=== PATIENT | female | born 1960 | race Caucasian/White ===

== ENCOUNTER 2020-06-03 17:18 | Inpatient (IN) | payer MEDICARE ==
[2020-06-04 01:56] VITALS: BP 116/52
[2020-06-04] MEDS: risperiDONE 1 mg/mL 30 mL Bottle PO SCH ×3 (09:44→17:06)
--- NOTE | 2020-06-04 18:03 | History and Physical ---
History of Present Illness - HPI Chief Complaint: * Delusion/Hallucinations HPI: * Admitted from [facility] * Placed on hold with delusion/hallucinations Vital Signs: Last Vital Signs Temp 97.6 F 06/04/20 14:00 Pulse 85 06/04/20 14:00 Resp 18 06/04/20 14:00 BP 104/50 06/04/20 14:00 Pulse Ox 94 06/04/20 14:00 Past Medical History Cardiovascular: Report: No Pertinent Hx CERTIFIED REGISTERED LOCKSMITH: Report: No Pertinent Hx GI: Report: No Pertinent Hx Psych: Report: Depression Musculoskeletal: Report: No Pertinent Hx Rheumatologic: Report: Fibromyalgia Infectious Disease: Report: No Pertinent Hx Renal/: Report: No Pertinent Hx Endocrine: Report: Hypothyroidism Dermatology: Report: No Pertinent Hx - Past Surgical History Past Surgical History: No pertinent Hx Family Medical History - Family Member Family History Unknown: Yes Ethnicity: Unknown Living Status: Unknown Hx Family Cancer: (Unknown) Hx Family Coronary Artery Disease: (Unknown) Hx Family Congestive Heart Failure: (Unknown) Hx Family Hypertension: (Unknown) Hx Family Stroke: (Unknown) Hx Family Diabetes: (Unknown) Hx Family Seizures: (Unknown) Hx Family Dementia: (Unknown) Hx Family AIDS: (Unknown) Hx Family COPD: (Unknown) Hx Family Hepatitis: (Unknown) Hx Family Psychiatric Problems: (Unknown) Hx Family Tuberculosis: (Unknown) Social History Smoke: No Alcohol: None Drugs: None Lives: With Family - Medications Home Medications: Home Medication Medication Instructions Recorded Type DULoxetine DR [Cymbalta] 06/04/20 History Levothyroxine [Synthroid] 06/04/20 History busPIRone [Buspar] 06/04/20 History - Allergies Allergies/Adverse Reactions: Allergies Allergy/AdvReac Type Severity Reaction Status Date / Time Penicillins [PCN] Allergy Verified 06/04/20 01:43 Review of Systems - Review of Systems Constitutional: Report: No Significant Eyes: Report: No Significant ENT: Report: No Significant Respiratory: Report: No Significant Cardiovascular: Report: No Significant Gastrointestinal: Report: Abdominal Pain Musculoskeletal: Report: No Significant Skin: Report: No Significant Neurological: Report: Confusion Physical Exam - Physical Exam HEENT: Report: Ears Nose Throat within normal limits, Pharnyx within normal limits Neck: Report: Within normal limits Cardiovascular Systems: Report: Regular, Rate and Rhythm, no murmurs noted Respiratory: Report: Clear to Auscultation of lung gottlieb, Breath Sounds are within normal limits Abdomen: Report: Tender to palpation Back: Report: Inspection of back is within normal limits. Extremities: Report: Non-tender to palpation., Patient had full range of motion , No pedal edema was noted on inspection Skin: Report: Color of skin is within normal limits, Warm, Dry, No Rashes noted of the skin Neuro/Psych: Report: A+Ox3, CN II-XII intact, Depressed affect, No motor deficit , No sensory deficit, No new focal deficits - Assessment Assessment: * Psychosis * Fibromyalgia * Hypothyroidism * Depression - Plan Plan: * Admitted to Geropsych Unit * Psychiatry Consult * Obtain labs Cranial Nerve Assessment - CRANIAL NERVES alcohol swab:: Yes Distinguishes movements in peripheral field.:: Yes up, down, sideways:: Yes on forehead, cheeks and chin, chews symmetrically:: Yes FACIAL VII: upper: Frowns Symmetrically:: Yes FACIAL VII: Lower: Smiles Symmetrically:: Yes both ears:: Yes GLOSS-PHARYNGEAL IX: Has gag reflex:: Yes VAGUS X: Can make guttural sounds:: Yes ACCESSORY XI: Shrugs shoulders symmetrically:: Yes tremors or fasciculation's:: Yes - MOTOR spasticity, cogwheel, atrophy, tremor, asterixis, other: Yes - COORDINATION Finger to nose, heel to muñoz, RICHARD, gait, Romberg: Yes - SENSORY signs, Brudzinski, Kernig, neck rigidity:: Yes - REFLEXES Brachioradials Right:: Yes Brachioradials Left:: Yes Biceps Right:: Yes Biceps Left:: Yes Triceps Right:: Yes Triceps Left:: Yes Knee Right:: Yes Knee Left:: Yes Ankle Right:: Yes Ankle Left:: Yes Babinski Right:: No Babinski Left:: No
--- NOTE | 2020-06-04 22:48 | Psychiatric Evaluation ---
DATE OF SERVICE: 06/04/2020 PSYCHIATRIC INITIAL EVALUATION AND MENTAL STATUS EXAM AGE: 59. SEX: Female. PHYSICIAN: Dr. Elder. CHIEF COMPLAINT: Severe depression and suicidal notes. HISTORY OF PRESENT ILLNESS: The patient is a 59-year-old female who was placed on 5150 hold for dangers to self. Apparently, the patient was severely depressed and left a suicidal to her daughter that she wants to kill herself. At the same time, the patient was delusional and psychotic and paranoid and she was placed on a hold. The patient was evaluated in [facility] after the patient wrote the suicidal note to her daughter. Her daughter reported that she found the suicidal note that is written by the patient on 05/28/2020. The patient was placed on a hold and she was monitored closely. Also, she was evaluated by a psychiatrist who said that the patient is suicidal and there is high risk of suicide and also that she is delusional. The patient also has upper quadrant pain. The patient also has a small kidney. The patient said that she is complaining of severe pain everywhere in her body. She also has been delusional at times and talking nonsensical according to staff and during my interview. The patient also seems to be abusing pain medications and asking for more pain medications. She does have a diagnosis of fibromyalgia, but it seems that she has been treated more than what she is supposed to of the pain medications. PAST PSYCHIATRIC HISTORY: It is not clear if the patient had history of psychiatric problems, but the patient minimizes her symptoms and behavior. PAST MEDICAL HISTORY: The patient has fibromyalgia as well as hypothyroidism. SOCIAL HISTORY: The patient said that she lives alone. Her in 05/2014. She has 1 daughter and 2 sons. She denies any alcohol or any street drug abuse. She also denies smoking cigarettes. She denies any legal issues or abuse issues. ALLERGIES: PENICILLIN. MENTAL STATUS EXAMINATION: The patient appears her stated age. Anxious. Sad affect. In a depressed mood. Guarded. Thought processes are mainly goal directed, but occasionally circumstantial and tangential with flight of ideas. The patient denies any hallucinations or delusions but admits to suicidal ideations and denies homicidal ideations. The patient is alert and oriented to time, place, person, and situation. Intact immediate memory and she remembered the events happened prior to her admission. Intact recent memory and she remembered the events happened 2 weeks ago. Intact remote memory and she remembered her date. Poor insight and she does not think that she has any problems. Poor judgment and wanted to kill herself. Poor attention and concentration and she was not able to perform any of steps of serial 7. ASSESSMENT: PRIMARY DIAGNOSIS: Major depression, severe, single episode, with psychotic features. SECONDARY DIAGNOSIS: Opiate dependence, severe. TREATMENT PLAN: Continue to monitor behavior and condition closely. Also, continue adjusting psychotropic medications and work on her ineffective coping. Also, continue to work on her addiction to opiates. ESTIMATED LENGTH OF STAY: 5-7 days. PATIENT'S STRENGTHS AND WEAKNESSES: The patient's strength is not clear at this time, except that she has supportive daughter and she seems to be in relatively ____. Weakness is her ineffective coping and misuse of leisure time by using opiates. AFTER DISCHARGE PLANS: Outpatient treatment and followup will continue as an outpatient. CRITERIA FOR DISCHARGE: The patient will not be psychotic and will stabilize on psychotropic medications and will establish treatment plans. JOB# [id number]
--- NOTE | 2020-06-05 08:14 | Progress Notes ---
DATE: 06/05/2020 SUBJECTIVE: Chart reviewed and the patient interviewed. Also discussed the patient's condition with the staff and reviewed records and labs. The patient is still preoccupied with her physical problem and still asking for more pain medications. The patient also is still severely depressed and tends to isolate herself and interacting minimally with others. Has multiple somatic complaints. The patient also is still anxious and is easily irritable and agitated. On the other hand, the patient is compliant with taking her medications with no side effects of medications, which are Lexapro and Risperdal. ASSESSMENT: The patient is anxious and is still severely depressed and high risk suicide. TREATMENT PLAN: Continue to monitor her behavior and her condition closely. Also, the patient is still high risk of suicide and we will place the patient on 5250 hold for dangers to self. Also, continue to work on her irritability and on her ineffective coping as well as her addiction to pain medications. JOB# [id number]
[2020-06-05] MEDS: risperiDONE 1 mg/mL 30 mL Bottle PO SCH ×2 (08:57→16:29)
[2020-06-05 13:32] LABS: HEMATOCRIT 37.3 % (36-48); HEMOGLOBIN 12.2 g/dL (12.0-16.0); MEAN CORPUSCULAR HEMOGLOBIN 32 pg (27-31); MEAN CORPUSCULAR HGB CONC 33 % (32-36); MEAN CORPUSCULAR VOLUME 97 fL (79.0-98.0); RED BLOOD COUNT 3.83 MIL/uL (4.2-6.2); RED CELL DISTRIBUTION WIDTH 13.5 % (9.0-15.0); WHITE BLOOD COUNT 5.6 K/uL (4.8-10.8)
[2020-06-05 13:33] LABS: % NEUTROPHILS 60.6 % (40-70); BASOPHILS % (AUTO) 1.1 % (0.0-2.0); EOSINOPHILS % (AUTO) 2.4 % (0-4); LYMPHOCYTES # (AUTO) 1.6 K/uL (1.0-5.5); LYMPHOCYTES % (AUTO) 27.7 % (20.5-51.5); MONOCYTES # (AUTO) 0.5 K/uL (0.0-1.0); MONOCYTES % (AUTO) 8.2 % (1.7-9.3); NEUTROPHILS # (AUTO) 3.4 K/uL (1.8-7.7); PLATELET COUNT 391 K/uL (130-430)
[2020-06-05 13:34] LABS: EOSINOPHILS # (AUTO) 0.1 K/uL (0.0-0.4)
[2020-06-05 23:27] LABS: CALCIUM SERUM 9.5 mg/dL (8.4-10.2); CREATININE - SERUM 1.11 mg/dL (0.70-1.30)
[2020-06-05 23:28] LABS: BILIRUBIN,TOTAL 0.3 mg/dL (0.0-1.0); TOTAL PROTEIN,SERUM 6.9 g/dL (6.4-8.3)
[2020-06-06 06:10] LABS: A1C 5.5 % (4.8-5.6)
[2020-06-06] MEDS: risperiDONE 1 mg/mL 30 mL Bottle PO SCH ×2 (09:38→17:29)
[2020-06-06 13:58] LABS: CHOLESTEROL 213 mg/dL (<200); LDL CHOLESTEROL 113 mg/dL (0-129); TRIGLYCERIDES 119 mg/dL (30-150)
[2020-06-06] MEDS ORDERED: Magnesium Hydroxide (MOM) 30 mL UDC PO PRN (16:21)
[2020-06-06] MEDS: Maalox 30 mL Cup PO PRN (18:15)
--- NOTE | 2020-06-06 18:28 | Progress Notes ---
DATE: 06/06/2020 SUBJECTIVE: Chart reviewed and the patient interviewed. Also discussed the patient's condition with the staff and reviewed records and labs. "I have abdominal pain because of my abdominal condition not because I am anorexic or has a problem with my diet." The patient said that she is complaining of abdominal pain and also bleeding per rectum because of medical reasons. The patient is today seems to be more depressed and her insight seems to be slightly better. She is also interacting slightly more. She is still isolative and withdrawn and interacting minimally with others. Also, appetite is still poor. The patient said that because of her abdominal condition, she needs to eat special food and the way she eats the food and from the hospital is not agreeing with her that is why she goes to the bathroom frequently and has abdominal pain. ASSESSMENT: The patient is still depressed and agitated, but seems to have ___. TREATMENT PLAN: Continue monitoring her condition and continue current medications of Lexapro and Risperdal. Also, we will get diet consult to help with her getting the right food and right diet. At the same time, we will continue monitoring behavior and continue to follow up. JOB# [id number]
[2020-06-06] MEDS ORDERED: Potassium Chloride 20 mEq ER Tab PO ONE (20:05)
[2020-06-07] MEDS: risperiDONE 1 mg/mL 30 mL Bottle PO SCH ×2 (08:43→17:57)
[2020-06-07] MEDS: Maalox 30 mL Cup PO PRN (14:57)
--- NOTE | 2020-06-07 17:57 | Progress Notes ---
DATE: 06/07/2020 Case was discussed with staff of the patient and reviewed records. Covering for Dr. Elder. This is a 59-year-old female who was admitted on 06/04/2020. The patient was placed on a hold for danger to self. The patient was severely depressed, left a suicide note to her daughter that she wants to kill herself. The patient was delusional, psychotic, and paranoid. She was placed on a hold. The patient was sent from [facility]. Her daughter reported that she found the suicide note that was written by the patient on 05/28/2020. The patient was placed on a hold and monitored closely. She was high risk for suicide. The patient has been in a lot of pain_ her kidney. She has been delusional at times, not making sense. She may have been abusing pain medication. The patient is a poor historian. The patient continues to have poor insight, unpredictable, impulsive, needing redirection. Dr. Elder has her on Risperdal 1 mg twice a day and Lexapro 10 mg daily with no side effects, no sedation, no nausea, and no extrapyramidal symptoms. We will continue to work with the patient in group therapy, milieu therapy, and adjust medications as needed. JOB# [id number] [facility]
[2020-06-08] MEDS: risperiDONE 1 mg/mL 30 mL Bottle PO SCH ×2 (09:22→17:41)
[2020-06-08] MEDS: Maalox 30 mL Cup PO PRN (18:11)
--- NOTE | 2020-06-08 21:38 | Progress Notes ---
DATE: 06/08/2020 Case was discussed with staff of the patient and reviewed records. The patient was crying today. She states she just met up with her daughter, who she has been talked to or saw her since 1993. She apparently lost custody of her. She said they met up today. The father , and after that, her daughter started looking for love from other people. Apparently, he spoilt her. She was crying, tearful, and sad; though she was happy for talking to her daughter. She is sleeping better, eating better. No side effects to the medication, no sedation, no nausea, and no extrapyramidal symptoms. The patient continues to look somewhat disheveled. She is depressed and overwhelmed. She denies any current intent to harm herself. We will continue to work with the patient in group therapy, milieu therapy, and adjust medications as needed. JOB# [id number]
[2020-06-09] MEDS: risperiDONE 1 mg/mL 30 mL Bottle PO SCH ×2 (08:34→16:38)
--- NOTE | 2020-06-09 12:43 | Internal Medicine Prog Note ---
Internal Medicine Subjective - Subjective Service Date: 06/09/20 Patient seen and examined:: without staff Patient is:: awake Patient Complaints of:: congestion Per staff patient has:: no adverse event, no episodes of fall Internal Medicine Objective - Results Result Diagrams: 06/05/20 08:24 06/05/20 08:24 Recent Labs: Laboratory Last Values WBC 5.6 K/uL (4.8-10.8) 06/05/20 08:24 RBC 3.83 MIL/uL (4.2-6.2) L 06/05/20 08:24 Hgb 12.2 g/dL (12.0-16.0) 06/05/20 08:24 Hct 37.3 % (36-48) 06/05/20 08:24 MCV 97 fL (79.0-98.0) 06/05/20 08:24 MCH 32 pg (27-31) H 06/05/20 08:24 MCHC 33 % (32-36) 06/05/20 08:24 RDW 13.5 % (9.0-15.0) 06/05/20 08:24 Plt Count 391 K/uL (130-430) 06/05/20 08:24 MPV 7.8 fl (7.4-10.4) 06/05/20 08:24 Neut % (Auto) 60.6 % (40-70) 06/05/20 08:24 Lymph % (Auto) 27.7 % (20.5-51.5) 06/05/20 08:24 Bacon % (Auto) 8.2 % (1.7-9.3) 06/05/20 08:24 Eos % (Auto) 2.4 % (0-4) 06/05/20 08:24 Baso % (Auto) 1.1 % (0.0-2.0) 06/05/20 08:24 Neut # (Auto) 3.4 K/uL (1.8-7.7) 06/05/20 08:24 Lymph # (Auto) 1.6 K/uL (1.0-5.5) 06/05/20 08:24 Bacon # (Auto) 0.5 K/uL (0.0-1.0) 06/05/20 08:24 Eos # (Auto) 0.1 K/uL (0.0-0.4) 06/05/20 08:24 Baso # (Auto) 0.0 K/uL (0.0-0.2) 06/05/20 08:24 Sodium 137 mmol/L (136-145) 06/05/20 08:24 Potassium 3.0 mmol/L (3.5-5.1) L 06/05/20 08:24 Chloride 102 mmol/L (98-107) 06/05/20 08:24 Carbon Dioxide 24 mmol/L (23-29) 06/05/20 08:24 Anion Gap 14 (5-15) 06/05/20 08:24 BUN 6 mg/dL (8-21) L 06/05/20 08:24 Creatinine 1.11 mg/dL (0.70-1.30) 06/05/20 08:24 Glucose 112 mg/dL (70-99) H 06/05/20 08:24 Calcium 9.5 mg/dL (8.4-10.2) 06/05/20 08:24 Total Bilirubin 0.3 mg/dL (0.0-1.0) 06/05/20 08:24 AST 37 U/L (10-37) 06/05/20 08:24 ALT 40 U/L (12-78) 06/05/20 08:24 Alkaline Phosphatase 56 U/L (46-116) 06/05/20 08:24 Total Protein 6.9 g/dL (6.4-8.3) 06/05/20 08:24 Albumin 3.6 g/dL (3.4-5.0) 06/05/20 08:24 Triglycerides 119 mg/dL (30-150) 06/06/20 10:40 Cholesterol 213 mg/dL (<200) H 06/06/20 10:40 LDL Cholesterol 113 mg/dL (0-129) 06/06/20 10:40 HDL Cholesterol 80 mg/dL (>55) 06/06/20 10:40 - Physical Exam Vitals and I&O: Vital Signs Temp 98.9 F 06/09/20 06:41 Pulse 87 06/09/20 06:41 Resp 17 06/09/20 08:00 BP 101/57 06/09/20 06:41 Pulse Ox 97 08/17/20 06:41 Intake & Output 06/08/20 06/09/20 06/09/20 18:59 06:59 18:59 Intake Total 120 Balance 120 Intake: Oral 120 Other: # Voids 3 # Bowel Movements 0 Active Medications: Current Medications Acetaminophen (Tylenol) 650 mg PO Q4H PRN PRN Reason: Pain (Mild 1-3) Stop: 08/03/20 02:30 Last Admin: 06/08/20 21:04 Dose: 650 mg Al Hydrox/Mg Hydrox/Simethicone (Maalox) 30 ml PO Q4HR PRN PRN Reason: GI DISTRESS Stop: 08/05/20 16:20 Last Admin: 06/08/20 18:11 Dose: 30 ml Brimonidine Tartrate (Alphagan 0.2% Ophth Soln) 1 drop EACH EYE TID SABINO Stop: 08/08/20 13:59 Dorzolamide HCl (Trusopt 2% Ophth Soln) 1 drop EACH EYE TID SABINO Stop: 08/08/20 13:59 Escitalopram Oxalate (Lexapro) 10 mg PO DAILY [facility]; Protocol Stop: 08/03/20 09:59 Last Admin: 06/09/20 08:34 Dose: 10 mg Ibuprofen (Motrin) 600 mg PO TID PRN PRN Reason: abdominal pain Stop: 08/03/20 20:59 Last Admin: 06/05/20 21:33 Dose: 600 mg Latanoprost (Xalatan 0.005% Ophth Soln) 1 drop EACH EYE HS SABINO Stop: 08/08/20 20:59 Lorazepam (Ativan) 0.5 mg PO Q4HR PRN; Protocol PRN Reason: Anxiety Stop: 07/04/20 02:30 Last Admin: 06/09/20 01:12 Dose: 0.5 mg Magnesium Hydroxide (Milk Of Magnesia) 30 ml PO HS PRN PRN Reason: Constipation Risperidone (Risperdal) 1 mg PO BID [facility]; Protocol Stop: 08/03/20 09:59 Last Admin: 06/09/20 08:34 Dose: 1 mg Timolol Maleate (Timoptic 0.25% Ophth Soln) 1 drop EACH EYE QAM SABINO Stop: 08/09/20 08:59 Zolpidem Tartrate (Ambien) 5 mg PO HS PRN PRN Reason: Insomnia Stop: 08/03/20 02:30 Last Admin: 06/08/20 21:05 Dose: 5 mg General: weak HEENT: NC/AT Neck: Supple Lungs: CTAB Cardiovascular: RRR, Normal S1, Normal S2 Abdomen: soft Internal Medicine Assmt/Plan - Assessment Assessment: 1. HTN 2. Hypothyroidism - Plan Plan: continue supportive care d/w r.n. reviewed complete medical records
--- NOTE | 2020-06-09 20:48 | Progress Notes ---
DATE: 06/09/2020 SUBJECTIVE: Chart was reviewed and the patient interviewed. Also discussed the patient's condition with the staff and reviewed records and labs. The patient continued to be preoccupied and was complaining of pain. The patient also is still anxious and is still depressed. She continued to say that her pain is physical and that she wants to get help for her physical pain and her abdominal pain. Otherwise, the patient is compliant with taking her medications with no side effects of medications. ASSESSMENT: The patient is still depressed and still needs to work on her ineffective coping and also her dependence on pain medications. TREATMENT PLAN: Continue monitoring her behavior and her condition and continue to work on her ineffective coping. JOB# [id number]
[2020-06-10] MEDS: Timolol 0.25% Ophth Soln 5 mL Bottle EACH EYE SCH (08:25)
[2020-06-10] MEDS: risperiDONE 1 mg/mL 30 mL Bottle PO SCH ×2 (08:25→16:53)
--- NOTE | 2020-06-10 14:06 | Internal Medicine Prog Note ---
Internal Medicine Subjective - Subjective Service Date: 06/10/20 Patient seen and examined:: without staff (no fevers, no cough, no chest pain, no sob) Patient is:: awake Patient Complaints of:: congestion Per staff patient has:: no adverse event, no episodes of fall Internal Medicine Objective - Results Result Diagrams: 06/05/20 08:24 06/05/20 08:24 Recent Labs: Laboratory Last Values WBC 5.6 K/uL (4.8-10.8) 06/05/20 08:24 RBC 3.83 MIL/uL (4.2-6.2) L 06/05/20 08:24 Hgb 12.2 g/dL (12.0-16.0) 06/05/20 08:24 Hct 37.3 % (36-48) 06/05/20 08:24 MCV 97 fL (79.0-98.0) 06/05/20 08:24 MCH 32 pg (27-31) H 06/05/20 08:24 MCHC 33 % (32-36) 06/05/20 08:24 RDW 13.5 % (9.0-15.0) 06/05/20 08:24 Plt Count 391 K/uL (130-430) 06/05/20 08:24 MPV 7.8 fl (7.4-10.4) 06/05/20 08:24 Neut % (Auto) 60.6 % (40-70) 06/05/20 08:24 Lymph % (Auto) 27.7 % (20.5-51.5) 06/05/20 08:24 [place] % (Auto) 8.2 % (1.7-9.3) 06/05/20 08:24 Eos % (Auto) 2.4 % (0-4) 06/05/20 08:24 Baso % (Auto) 1.1 % (0.0-2.0) 06/05/20 08:24 Neut # (Auto) 3.4 K/uL (1.8-7.7) 06/05/20 08:24 Lymph # (Auto) 1.6 K/uL (1.0-5.5) 06/05/20 08:24 [place] # (Auto) 0.5 K/uL (0.0-1.0) 06/05/20 08:24 Eos # (Auto) 0.1 K/uL (0.0-0.4) 06/05/20 08:24 Baso # (Auto) 0.0 K/uL (0.0-0.2) 06/05/20 08:24 Sodium 137 mmol/L (136-145) 06/05/20 08:24 Potassium 3.0 mmol/L (3.5-5.1) L 06/05/20 08:24 Chloride 102 mmol/L (98-107) 06/05/20 08:24 Carbon Dioxide 24 mmol/L (23-29) 06/05/20 08:24 Anion Gap 14 (5-15) 06/05/20 08:24 BUN 6 mg/dL (8-21) L 06/05/20 08:24 Creatinine 1.11 mg/dL (0.70-1.30) 06/05/20 08:24 Glucose 112 mg/dL (70-99) H 06/05/20 08:24 Calcium 9.5 mg/dL (8.4-10.2) 06/05/20 08:24 Total Bilirubin 0.3 mg/dL (0.0-1.0) 06/05/20 08:24 AST 37 U/L (10-37) 06/05/20 08:24 ALT 40 U/L (12-78) 06/05/20 08:24 Alkaline Phosphatase 56 U/L (46-116) 06/05/20 08:24 Total Protein 6.9 g/dL (6.4-8.3) 06/05/20 08:24 Albumin 3.6 g/dL (3.4-5.0) 06/05/20 08:24 Triglycerides 119 mg/dL (30-150) 06/06/20 10:40 Cholesterol 213 mg/dL (<200) H 06/06/20 10:40 LDL Cholesterol 113 mg/dL (0-129) 06/06/20 10:40 HDL Cholesterol 80 mg/dL (>55) 06/06/20 10:40 - Physical Exam Vitals and I&O: Vital Signs Temp 97.5 F 06/10/20 05:16 Pulse 95 06/10/20 05:16 Resp 16 06/10/20 08:00 BP 138/72 06/10/20 05:16 Pulse Ox 97 06/10/20 05:16 Intake & Output 06/09/20 06/10/20 06/10/20 18:59 06:59 18:59 Intake Total 900 360 Balance 900 360 Intake: Oral 900 360 Other: # Voids 3 1 # Bowel Movements 1 0 Active Medications: Current Medications Acetaminophen (Tylenol) 650 mg PO Q4H PRN PRN Reason: Pain (Mild 1-3) Stop: 08/03/20 02:30 Last Admin: 06/09/20 15:52 Dose: 650 mg Al Hydrox/Mg Hydrox/Simethicone (Maalox) 30 ml PO Q4HR PRN PRN Reason: GI DISTRESS Stop: 08/05/20 16:20 Last Admin: 06/08/20 18:11 Dose: 30 ml Brimonidine Tartrate (Alphagan 0.2% Ophth Soln) 1 drop EACH EYE TID SABINO Stop: 08/08/20 13:59 Last Admin: 06/10/20 08:24 Dose: 1 drop Dorzolamide HCl (Trusopt 2% Ophth Soln) 1 drop EACH EYE TID SABINO Stop: 08/08/20 13:59 Last Admin: 06/10/20 08:24 Dose: 1 drop Escitalopram Oxalate (Lexapro) 10 mg PO DAILY [facility]; Protocol Stop: 08/03/20 09:59 Last Admin: 06/10/20 08:25 Dose: 10 mg Ibuprofen (Motrin) 600 mg PO TID PRN PRN Reason: abdominal pain Stop: 08/03/20 20:59 Last Admin: 06/05/20 21:33 Dose: 600 mg Latanoprost (Xalatan 0.005% Ophth Soln) 1 drop EACH EYE HS SABINO Stop: 08/08/20 20:59 Last Admin: 06/09/20 20:54 Dose: 1 drop Lorazepam (Ativan) 0.5 mg PO Q4HR PRN; Protocol PRN Reason: Anxiety Stop: 07/04/20 02:30 Last Admin: 06/09/20 01:12 Dose: 0.5 mg Magnesium Hydroxide (Milk Of Magnesia) 30 ml PO HS PRN PRN Reason: Constipation Risperidone (Risperdal) 1 mg PO BID [facility]; Protocol Stop: 08/03/20 09:59 Last Admin: 06/10/20 08:25 Dose: 1 mg Timolol Maleate (Timoptic 0.25% Ophth Soln) 1 drop EACH EYE QAM SABINO Stop: 08/09/20 08:59 Last Admin: 06/10/20 08:25 Dose: 1 drop Zolpidem Tartrate (Ambien) 5 mg PO HS PRN PRN Reason: Insomnia Stop: 08/03/20 02:30 Last Admin: 06/09/20 20:55 Dose: 5 mg General: weak HEENT: NC/AT Neck: Supple Lungs: CTAB Cardiovascular: RRR, Normal S1, Normal S2 Abdomen: soft Extremities: clear Internal Medicine Assmt/Plan - Assessment Assessment: 1. HTN 2. Hypothyroidism 3. Hypokalemia - Plan Plan: repeat bmp continue supportive care d/w r.n. reviewed complete medical records Nutritional Asmnt/Malnutr-PDOC - Dietary Evaluation Malnutrition Findings (Please click <Entered> for more info): Nutritional Asmnt/Malnutrition Start: 06/09/20 14: 10 Text: Status: Complete Freq: Protocol: Document 06/09/20 14:10 CHEKO (Rec: 06/09/20 14:14 CHEKO [id number]) Nutritional Asmnt/Malnutrition Patient General Information Nutritional Screening Low Risk Diagnosis Acute Psychosis Pertinent Medical Hx/Surgical Hx Depression, Fibromyalgia, Hypothyroidism Subjective Information Pt is a 59-year-old female admitted on 06/04 d/t hold with delusions and hallucinations. Pt is eating an estimated 95 % of meals since admit date ( x4 days) Per Meal/Nutrition Activity Record. Dietary is currently providing an estimated 2400 kcals and 109 gm Pro, per PO intake this is providing an estimated 2280 kcals and 103g Pro to meet 100 +% kcal and 100+% Pro needs. Visited pt in room, stated her stomach feels bloated, food has been fine. Pt stated she had a gallbladder removal, did not give a date of occurrence . Spoke with charge nurse Elise concerning diet recommendation. Recorded pt food preferences. Recommend Cardiac Diet to lower overall fat intake d/t obesity and BMI >30 (33.36). Anthropometrics HT: 57 WT: 213 LB (96.82 kg) ABW: 155 Lb (70.23 kg) BMI: 33.36 (obese) GI/ Skin Integrity GI: WNL, Soft, Non-tender, Large BM: 06/07 x1 I/O: 120/Not Noted Skin: WNL, Intact [place]: 19 Diet Order: Regular Estimated Energy Needs: (Obese , ABW) 7903-8711 kcals (20-25 kcals/ kg) 55-70g Pro (0.8-1.0 g/kg) 0503-7273 ml (20-25 ml/kg) Current Diet Order/ Nutrition Support Regular Patient / S.O Can Pertinent Medications Maalox (PRN), MOM (PRN) Pertinent Labs 06/05: Potassium 3.0, BUN/Cr 6/ 112, Glucose 112, Cholesterol 213 Nutritional Hx/Data Height 1.7 m Height (Calculated Centimeters) 170.2 Current Weight (lbs) 96.615 kg Weight (Calculated Kilograms) 96.6 Weight (Calculated Grams) 58053.2 [place] Body Weight 135 Lb (61.36 kg) % [place] Body Weight 158 Body Mass Index (BMI) 33.3 Weight Status Obese GI Symptoms Skin Integrity/Comment: Skin: WNL, Intact [place]: 19 Estimated Nutritional Goals BEE in Kcals: Adj wt of IBW Calories/Kcals/Kg 20-25 Kcals Calculated 6173-6967 Protein: Adj wt of IBW Protein g/k.8-1.0 Protein Calculated 55-70 Fluid: ml 3571-1390 ml (20-25 ml/kg) Nutritional Problem 2. Problem Problem Obese Etiology r/t chronic energy overconsumption Signs/Symptoms: aeb BMI <30 (33.36). 1. Problem Problem Altered nutrition related labs Etiology r/t pathophysiological causes Signs/Symptoms: aeb (06/05) Potassium 3.0, BUN/ Cr 6/112, Glucose 112, Cholesterol 213. Malnutrition Related to Morbid Obesity Malnutrition related to morbid obesity No Intervention/Recommendation Comments Recommend Cardiac diet. Expected Outcomes/Goals Expected Outcomes/Goals 1.PO intake to continue to meet >75% of estimated nutritional needs. 2.Monitor PO intake, wt, nutrition related labs to trend WNL, and skin integrity. 3.F/U as low risk in 7-10 days , 06/16-06/19.
[2020-06-10] MEDS: Maalox 30 mL Cup PO PRN (16:54)
--- NOTE | 2020-06-10 19:36 | Progress Notes ---
DATE: 06/10/2020 SUBJECTIVE: Chart reviewed and the patient interviewed. Also discussed the patient's condition with the staff and also reviewed her condition. I discussed it with Jose, her caregiver. The patient is complaining of physical pain and "I'm not mental." The patient is still in a depressed mood and she is still isolative and withdrawn. The patient also is saying that her main problem is physical. Her caregiver "Jose" called me that the patient is supposed to have surgery coming sometime soon. She is still interacting appropriately, but she also seems to be in a depressed mood. ASSESSMENT: The patient is still depressed and minimizing her physical condition. TREATMENT PLAN: We will continue monitoring behavior and condition closely. Also, working on her effective coping and her pain and we will continue to follow up. JOB# [id number]
[2020-06-11] MEDS: Maalox 30 mL Cup PO PRN (01:05)
[2020-06-11] MEDS: risperiDONE 1 mg/mL 30 mL Bottle PO SCH ×2 (08:12→16:23)
[2020-06-11] MEDS: Timolol 0.25% Ophth Soln 5 mL Bottle EACH EYE SCH (08:19)
--- NOTE | 2020-06-11 13:26 | Progress Notes ---
DATE: 06/11/2020 Case was discussed with staff of the patient, reviewed records. Covering for Dr. Elder. This is a well-known case to me. I have seen her a few days ago. Covering for Dr. Elder. The patient reports she is trying to get to resolution with her mother, with her daughter. Continues to be depressed, isolating herself. She believes her main problem is physical. The patient was supposed to have surgery sometime soon. She is appropriate. Continues to be depressed. No side effects with the medication, no sedation, no nausea. She is on Lexapro 10 mg daily, Risperdal 1 mg twice a day. We will continue outpatient group therapy, milieu therapy, and adjust medication as needed. JOB# [id number] MTDD
--- NOTE | 2020-06-11 13:45 | Internal Medicine Prog Note ---
Internal Medicine Subjective - Subjective Service Date: 06/11/20 Patient seen and examined:: without staff Patient is:: awake Patient Complaints of:: congestion Per staff patient has:: no adverse event, no episodes of fall Internal Medicine Objective - Results Result Diagrams: 06/05/20 08:24 06/05/20 08:24 Recent Labs: Laboratory Last Values WBC 5.6 K/uL (4.8-10.8) 06/05/20 08:24 RBC 3.83 MIL/uL (4.2-6.2) L 06/05/20 08:24 Hgb 12.2 g/dL (12.0-16.0) 06/05/20 08:24 Hct 37.3 % (36-48) 06/05/20 08:24 MCV 97 fL (79.0-98.0) 06/05/20 08:24 MCH 32 pg (27-31) H 06/05/20 08:24 MCHC 33 % (32-36) 06/05/20 08:24 RDW 13.5 % (9.0-15.0) 06/05/20 08:24 Plt Count 391 K/uL (130-430) 06/05/20 08:24 MPV 7.8 fl (7.4-10.4) 06/05/20 08:24 Neut % (Auto) 60.6 % (40-70) 06/05/20 08:24 Lymph % (Auto) 27.7 % (20.5-51.5) 06/05/20 08:24 [place] % (Auto) 8.2 % (1.7-9.3) 06/05/20 08:24 Eos % (Auto) 2.4 % (0-4) 06/05/20 08:24 Baso % (Auto) 1.1 % (0.0-2.0) 06/05/20 08:24 Neut # (Auto) 3.4 K/uL (1.8-7.7) 06/05/20 08:24 Lymph # (Auto) 1.6 K/uL (1.0-5.5) 06/05/20 08:24 [place] # (Auto) 0.5 K/uL (0.0-1.0) 06/05/20 08:24 Eos # (Auto) 0.1 K/uL (0.0-0.4) 06/05/20 08:24 Baso # (Auto) 0.0 K/uL (0.0-0.2) 06/05/20 08:24 Sodium 137 mmol/L (136-145) 06/05/20 08:24 Potassium 3.0 mmol/L (3.5-5.1) L 06/05/20 08:24 Chloride 102 mmol/L (98-107) 06/05/20 08:24 Carbon Dioxide 24 mmol/L (23-29) 06/05/20 08:24 Anion Gap 14 (5-15) 06/05/20 08:24 BUN 6 mg/dL (8-21) L 06/05/20 08:24 Creatinine 1.11 mg/dL (0.70-1.30) 06/05/20 08:24 Glucose 112 mg/dL (70-99) H 06/05/20 08:24 Calcium 9.5 mg/dL (8.4-10.2) 06/05/20 08:24 Total Bilirubin 0.3 mg/dL (0.0-1.0) 06/05/20 08:24 AST 37 U/L (10-37) 06/05/20 08:24 ALT 40 U/L (12-78) 06/05/20 08:24 Alkaline Phosphatase 56 U/L (46-116) 06/05/20 08:24 Total Protein 6.9 g/dL (6.4-8.3) 06/05/20 08:24 Albumin 3.6 g/dL (3.4-5.0) 06/05/20 08:24 Triglycerides 119 mg/dL (30-150) 06/06/20 10:40 Cholesterol 213 mg/dL (<200) H 06/06/20 10:40 LDL Cholesterol 113 mg/dL (0-129) 06/06/20 10:40 HDL Cholesterol 80 mg/dL (>55) 06/06/20 10:40 - Physical Exam Vitals and I&O: Vital Signs Temp 97.7 F 06/11/20 06:09 Pulse 72 06/11/20 06:09 Resp 20 06/11/20 08:00 BP 109/69 06/11/20 06:09 Pulse Ox 98 08/19/20 06:09 Intake & Output 06/10/20 06/11/20 06/11/20 18:59 06:59 18:59 Intake Total 1200 120 Balance 1200 120 Intake: Oral 1200 120 Other: # Voids 3 3 # Bowel Movements 0 Active Medications: Current Medications Acetaminophen (Tylenol) 650 mg PO Q4H PRN PRN Reason: Pain (Mild 1-3) Stop: 08/03/20 02:30 Last Admin: 06/09/20 15:52 Dose: 650 mg Al Hydrox/Mg Hydrox/Simethicone (Maalox) 30 ml PO Q4HR PRN PRN Reason: GI DISTRESS Stop: 08/05/20 16:20 Last Admin: 06/11/20 01:05 Dose: 30 ml Brimonidine Tartrate (Alphagan 0.2% Ophth Soln) 1 drop EACH EYE TID SABINO Stop: 08/08/20 13:59 Last Admin: 06/11/20 08:19 Dose: 1 drop Dorzolamide HCl (Trusopt 2% Ophth Soln) 1 drop EACH EYE TID SABINO Stop: 08/08/20 13:59 Last Admin: 06/11/20 08:19 Dose: 1 drop Escitalopram Oxalate (Lexapro) 10 mg PO DAILY [facility]; Protocol Stop: 08/03/20 09:59 Last Admin: 06/11/20 08:12 Dose: 10 mg Ibuprofen (Motrin) 600 mg PO TID PRN PRN Reason: abdominal pain Stop: 08/03/20 20:59 Last Admin: 06/11/20 04:56 Dose: 600 mg Latanoprost (Xalatan 0.005% Ophth Soln) 1 drop EACH EYE HS SABINO Stop: 08/08/20 20:59 Last Admin: 06/10/20 20:26 Dose: 1 drop Lorazepam (Ativan) 0.5 mg PO Q4HR PRN; Protocol PRN Reason: Anxiety Stop: 07/04/20 02:30 Last Admin: 06/11/20 12:07 Dose: 0.5 mg Magnesium Hydroxide (Milk Of Magnesia) 30 ml PO HS PRN PRN Reason: Constipation Risperidone (Risperdal) 1 mg PO BID [facility]; Protocol Stop: 08/03/20 09:59 Last Admin: 06/11/20 08:12 Dose: 1 mg Timolol Maleate (Timoptic 0.25% Ophth Soln) 1 drop EACH EYE QAM SABINO Stop: 08/09/20 08:59 Last Admin: 06/11/20 08:19 Dose: 1 drop Zolpidem Tartrate (Ambien) 5 mg PO HS PRN PRN Reason: Insomnia Stop: 08/03/20 02:30 Last Admin: 06/10/20 21:39 Dose: 5 mg General: weak HEENT: NC/AT Neck: Supple Lungs: CTAB Cardiovascular: RRR, Normal S1, Normal S2 Abdomen: soft Extremities: clear Internal Medicine Assmt/Plan - Assessment Assessment: 1. HTN 2. Hypothyroidism 3. Hypokalemia - Plan Plan: await results of bmp continue supportive care d/w r.n. reviewed complete medical records Nutritional Asmnt/Malnutr-PDOC - Dietary Evaluation Malnutrition Findings (Please click <Entered> for more info): Nutritional Asmnt/Malnutrition Start: 06/09/20 14: 10 Text: Status: Complete Freq: Protocol: Document 06/09/20 14:10 CHEKO (Rec: 06/09/20 14:14 CHEKO [id number]) Nutritional Asmnt/Malnutrition Patient General Information Nutritional Screening Low Risk Diagnosis Acute Psychosis Pertinent Medical Hx/Surgical Hx Depression, Fibromyalgia, Hypothyroidism Subjective Information Pt is a 59-year-old female admitted on 06/04 d/t hold with delusions and hallucinations. Pt is eating an estimated 95 % of meals since admit date ( x4 days) Per Meal/Nutrition Activity Record. Dietary is currently providing an estimated 2400 kcals and 109 gm Pro, per PO intake this is providing an estimated 2280 kcals and 103g Pro to meet 100 +% kcal and 100+% Pro needs. Visited pt in room, stated her stomach feels bloated, food has been fine. Pt stated she had a gallbladder removal, did not give a date of occurrence . Spoke with charge nurse Elise concerning diet recommendation. Recorded pt food preferences. Recommend Cardiac Diet to lower overall fat intake d/t obesity and BMI >30 (33.36). Anthropometrics HT: 57 WT: 213 LB (96.82 kg) ABW: 155 Lb (70.23 kg) BMI: 33.36 (obese) GI/ Skin Integrity GI: WNL, Soft, Non-tender, Large BM: 06/07 x1 I/O: 120/Not Noted Skin: WNL, Intact [place]: 19 Diet Order: Regular Estimated Energy Needs: (Obese , ABW) 7668-7507 kcals (20-25 kcals/ kg) 55-70g Pro (0.8-1.0 g/kg) 7492-8945 ml (20-25 ml/kg) Current Diet Order/ Nutrition Support Regular Patient / S.O Can Pertinent Medications Maalox (PRN), MOM (PRN) Pertinent Labs 06/05: Potassium 3.0, BUN/Cr 6/ 112, Glucose 112, Cholesterol 213 Nutritional Hx/Data Height 1.7 m Height (Calculated Centimeters) 170.2 Current Weight (lbs) 96.615 kg Weight (Calculated Kilograms) 96.6 Weight (Calculated Grams) 32671.2 [place] Body Weight 135 Lb (61.36 kg) % [place] Body Weight 158 Body Mass Index (BMI) 33.3 Weight Status Obese GI Symptoms Skin Integrity/Comment: Skin: WNL, Intact [place]: 19 Estimated Nutritional Goals BEE in Kcals: Adj wt of IBW Calories/Kcals/Kg 20-25 Kcals Calculated 1790-9251 Protein: Adj wt of IBW Protein g/k.8-1.0 Protein Calculated 55-70 Fluid: ml 6414-9460 ml (20-25 ml/kg) Nutritional Problem 2. Problem Problem Obese Etiology r/t chronic energy overconsumption Signs/Symptoms: aeb BMI <30 (33.36). 1. Problem Problem Altered nutrition related labs Etiology r/t pathophysiological causes Signs/Symptoms: aeb (06/05) Potassium 3.0, BUN/ Cr 6/112, Glucose 112, Cholesterol 213. Malnutrition Related to Morbid Obesity Malnutrition related to morbid obesity No Intervention/Recommendation Comments Recommend Cardiac diet. Expected Outcomes/Goals Expected Outcomes/Goals 1.PO intake to continue to meet >75% of estimated nutritional needs. 2.Monitor PO intake, wt, nutrition related labs to trend WNL, and skin integrity. 3.F/U as low risk in 7-10 days , 06/16-06/19.
[2020-06-12] MEDS: Timolol 0.25% Ophth Soln 5 mL Bottle EACH EYE SCH (08:33)
[2020-06-12] MEDS: risperiDONE 1 mg/mL 30 mL Bottle PO SCH ×2 (08:35→17:53)
[2020-06-12] MEDS ORDERED: Escitalopram Oxalate 10 MG, Escitalopram Oxalate 5 MG PO ONE (12:00)
--- NOTE | 2020-06-12 15:36 | Internal Medicine Prog Note ---
Internal Medicine Subjective - Subjective Service Date: 06/12/20 Patient seen and examined:: without staff Patient is:: awake Patient Complaints of:: congestion Per staff patient has:: no adverse event, no episodes of fall Internal Medicine Objective - Results Result Diagrams: 06/05/20 08:24 06/05/20 08:24 Recent Labs: Laboratory Last Values WBC 5.6 K/uL (4.8-10.8) 06/05/20 08:24 RBC 3.83 MIL/uL (4.2-6.2) L 06/05/20 08:24 Hgb 12.2 g/dL (12.0-16.0) 06/05/20 08:24 Hct 37.3 % (36-48) 06/05/20 08:24 MCV 97 fL (79.0-98.0) 06/05/20 08:24 MCH 32 pg (27-31) H 06/05/20 08:24 MCHC 33 % (32-36) 06/05/20 08:24 RDW 13.5 % (9.0-15.0) 06/05/20 08:24 Plt Count 391 K/uL (130-430) 06/05/20 08:24 MPV 7.8 fl (7.4-10.4) 06/05/20 08:24 Neut % (Auto) 60.6 % (40-70) 06/05/20 08:24 Lymph % (Auto) 27.7 % (20.5-51.5) 06/05/20 08:24 [place] % (Auto) 8.2 % (1.7-9.3) 06/05/20 08:24 Eos % (Auto) 2.4 % (0-4) 06/05/20 08:24 Baso % (Auto) 1.1 % (0.0-2.0) 06/05/20 08:24 Neut # (Auto) 3.4 K/uL (1.8-7.7) 06/05/20 08:24 Lymph # (Auto) 1.6 K/uL (1.0-5.5) 06/05/20 08:24 [place] # (Auto) 0.5 K/uL (0.0-1.0) 06/05/20 08:24 Eos # (Auto) 0.1 K/uL (0.0-0.4) 06/05/20 08:24 Baso # (Auto) 0.0 K/uL (0.0-0.2) 06/05/20 08:24 Sodium 137 mmol/L (136-145) 06/05/20 08:24 Potassium 3.0 mmol/L (3.5-5.1) L 06/05/20 08:24 Chloride 102 mmol/L (98-107) 06/05/20 08:24 Carbon Dioxide 24 mmol/L (23-29) 06/05/20 08:24 Anion Gap 14 (5-15) 06/05/20 08:24 BUN 6 mg/dL (8-21) L 06/05/20 08:24 Creatinine 1.11 mg/dL (0.70-1.30) 06/05/20 08:24 Glucose 112 mg/dL (70-99) H 06/05/20 08:24 Calcium 9.5 mg/dL (8.4-10.2) 06/05/20 08:24 Total Bilirubin 0.3 mg/dL (0.0-1.0) 06/05/20 08:24 AST 37 U/L (10-37) 06/05/20 08:24 ALT 40 U/L (12-78) 06/05/20 08:24 Alkaline Phosphatase 56 U/L (46-116) 06/05/20 08:24 Total Protein 6.9 g/dL (6.4-8.3) 06/05/20 08:24 Albumin 3.6 g/dL (3.4-5.0) 06/05/20 08:24 Triglycerides 119 mg/dL (30-150) 06/06/20 10:40 Cholesterol 213 mg/dL (<200) H 06/06/20 10:40 LDL Cholesterol 113 mg/dL (0-129) 06/06/20 10:40 HDL Cholesterol 80 mg/dL (>55) 06/06/20 10:40 - Physical Exam Vitals and I&O: Vital Signs Temp 97.5 F 06/12/20 14:00 Pulse 80 06/12/20 14:00 Resp 20 06/12/20 14:00 BP 111/75 06/12/20 14:00 Pulse Ox 94 06/12/20 14:00 Intake & Output 06/11/20 06/12/20 06/12/20 18:59 06:59 18:59 Intake Total 1200 120 Balance 1200 120 Intake: Oral 1200 120 Other: # Voids 3 # Bowel Movements 1 Active Medications: Current Medications Acetaminophen (Tylenol) 650 mg PO Q4H PRN PRN Reason: Pain (Mild 1-3) Stop: 08/03/20 02:30 Last Admin: 06/11/20 21:51 Dose: 650 mg Al Hydrox/Mg Hydrox/Simethicone (Maalox) 30 ml PO Q4HR PRN PRN Reason: GI DISTRESS Stop: 08/05/20 16:20 Last Admin: 06/11/20 01:05 Dose: 30 ml Brimonidine Tartrate (Alphagan 0.2% Ophth Soln) 1 drop EACH EYE TID SABINO Stop: 08/08/20 13:59 Last Admin: 06/12/20 14:57 Dose: 1 drop Dorzolamide HCl (Trusopt 2% Ophth Soln) 1 drop EACH EYE TID SABINO Stop: 08/08/20 13:59 Last Admin: 06/12/20 14:58 Dose: 1 drop Escitalopram Oxalate 10 mg/ (Escitalopram Oxalate 5 mg) 15 mg PO DAILY [facility] Stop: 08/12/20 09:59 Ibuprofen (Motrin) 600 mg PO TID PRN PRN Reason: abdominal pain Stop: 08/03/20 20:59 Last Admin: 06/11/20 04:56 Dose: 600 mg Latanoprost (Xalatan 0.005% Ophth Soln) 1 drop EACH EYE HS SABINO Stop: 08/08/20 20:59 Last Admin: 06/11/20 20:06 Dose: 1 drop Lorazepam (Ativan) 0.5 mg PO Q4HR PRN; Protocol PRN Reason: Anxiety Stop: 07/04/20 02:30 Last Admin: 06/11/20 12:07 Dose: 0.5 mg Magnesium Hydroxide (Milk Of Magnesia) 30 ml PO HS PRN PRN Reason: Constipation Risperidone (Risperdal) 1 mg PO BID [facility]; Protocol Stop: 08/03/20 09:59 Last Admin: 06/12/20 08:35 Dose: 1 mg Timolol Maleate (Timoptic 0.25% Ophth Soln) 1 drop EACH EYE QAM SABINO Stop: 08/09/20 08:59 Last Admin: 06/12/20 08:33 Dose: 1 drop Zolpidem Tartrate (Ambien) 5 mg PO HS PRN PRN Reason: Insomnia Stop: 08/03/20 02:30 Last Admin: 06/11/20 21:51 Dose: 5 mg General: weak HEENT: NC/AT Neck: Supple Lungs: CTAB Cardiovascular: RRR, Normal S1, Normal S2 Abdomen: soft Extremities: clear Neurological: no change Internal Medicine Assmt/Plan - Assessment Assessment: 1. HTN 2. Hypothyroidism 3. Hypokalemia - Plan Plan: continue supportive care d/w r.n. reviewed complete medical records Nutritional Asmnt/Malnutr-PDOC - Dietary Evaluation Malnutrition Findings (Please click <Entered> for more info): Nutritional Asmnt/Malnutrition Start: 06/09/20 14: 10 Text: Status: Complete Freq: Protocol: Document 06/09/20 14:10 CHEKO (Rec: 06/09/20 14:14 CHEKO [id number]) Nutritional Asmnt/Malnutrition Patient General Information Nutritional Screening Low Risk Diagnosis Acute Psychosis Pertinent Medical Hx/Surgical Hx Depression, Fibromyalgia, Hypothyroidism Subjective Information Pt is a 59-year-old female admitted on 06/04 d/t hold with delusions and hallucinations. Pt is eating an estimated 95 % of meals since admit date ( x4 days) Per Meal/Nutrition Activity Record. Dietary is currently providing an estimated 2400 kcals and 109 gm Pro, per PO intake this is providing an estimated 2280 kcals and 103g Pro to meet 100 +% kcal and 100+% Pro needs. Visited pt in room, stated her stomach feels bloated, food has been fine. Pt stated she had a gallbladder removal, did not give a date of occurrence . Spoke with charge nurse Elise concerning diet recommendation. Recorded pt food preferences. Recommend Cardiac Diet to lower overall fat intake d/t obesity and BMI >30 (33.36). Anthropometrics HT: 57 WT: 213 LB (96.82 kg) ABW: 155 Lb (70.23 kg) BMI: 33.36 (obese) GI/ Skin Integrity GI: WNL, Soft, Non-tender, Large BM: 06/07 x1 I/O: 120/Not Noted Skin: WNL, Intact [place]: 19 Diet Order: Regular Estimated Energy Needs: (Obese , ABW) 5323-3177 kcals (20-25 kcals/ kg) 55-70g Pro (0.8-1.0 g/kg) 1974-5967 ml (20-25 ml/kg) Current Diet Order/ Nutrition Support Regular Patient / S.O Can Pertinent Medications Maalox (PRN), MOM (PRN) Pertinent Labs 06/05: Potassium 3.0, BUN/Cr 6/ 112, Glucose 112, Cholesterol 213 Nutritional Hx/Data Height 1.7 m Height (Calculated Centimeters) 170.2 Current Weight (lbs) 96.615 kg Weight (Calculated Kilograms) 96.6 Weight (Calculated Grams) 50056.2 Anderson Body Weight 135 Lb (61.36 kg) % Anderson Body Weight 158 Body Mass Index (BMI) 33.3 Weight Status Obese GI Symptoms Skin Integrity/Comment: Skin: WNL, Intact Timur: 19 Estimated Nutritional Goals BEE in Kcals: Adj wt of IBW Calories/Kcals/Kg 20-25 Kcals Calculated 3210-0029 Protein: Adj wt of IBW Protein g/k.8-1.0 Protein Calculated 55-70 Fluid: ml 7961-8912 ml (20-25 ml/kg) Nutritional Problem 2. Problem Problem Obese Etiology r/t chronic energy overconsumption Signs/Symptoms: aeb BMI <30 (33.36). 1. Problem Problem Altered nutrition related labs Etiology r/t pathophysiological causes Signs/Symptoms: aeb (06/05) Potassium 3.0, BUN/ Cr 6/112, Glucose 112, Cholesterol 213. Malnutrition Related to Morbid Obesity Malnutrition related to morbid obesity No Intervention/Recommendation Comments Recommend Cardiac diet. Expected Outcomes/Goals Expected Outcomes/Goals 1.PO intake to continue to meet >75% of estimated nutritional needs. 2.Monitor PO intake, wt, nutrition related labs to trend WNL, and skin integrity. 3.F/U as low risk in 7-10 days , 06/16-06/19.
[2020-06-13] MEDS: Maalox 30 mL Cup PO PRN (03:40)
[2020-06-13] MEDS: risperiDONE 1 mg/mL 30 mL Bottle PO SCH (09:29)
[2020-06-13] MEDS: Timolol 0.25% Ophth Soln 5 mL Bottle EACH EYE SCH (09:30)
[2020-06-13] MEDS: Escitalopram Oxalate 10 MG, Escitalopram Oxalate 5 MG PO SCH (09:36)
--- NOTE | 2020-06-13 15:52 | Internal Medicine Prog Note ---
Internal Medicine Subjective - Subjective Service Date: 06/13/20 Patient seen and examined:: without staff Patient is:: awake Patient Complaints of:: congestion Per staff patient has:: no adverse event, no episodes of fall Internal Medicine Objective - Results Result Diagrams: 06/05/20 08:24 06/05/20 08:24 Recent Labs: Laboratory Last Values WBC 5.6 K/uL (4.8-10.8) 06/05/20 08:24 RBC 3.83 MIL/uL (4.2-6.2) L 06/05/20 08:24 Hgb 12.2 g/dL (12.0-16.0) 06/05/20 08:24 Hct 37.3 % (36-48) 06/05/20 08:24 MCV 97 fL (79.0-98.0) 06/05/20 08:24 MCH 32 pg (27-31) H 06/05/20 08:24 MCHC 33 % (32-36) 06/05/20 08:24 RDW 13.5 % (9.0-15.0) 06/05/20 08:24 Plt Count 391 K/uL (130-430) 06/05/20 08:24 MPV 7.8 fl (7.4-10.4) 06/05/20 08:24 Neut % (Auto) 60.6 % (40-70) 06/05/20 08:24 Lymph % (Auto) 27.7 % (20.5-51.5) 06/05/20 08:24 [place] % (Auto) 8.2 % (1.7-9.3) 06/05/20 08:24 Eos % (Auto) 2.4 % (0-4) 06/05/20 08:24 Baso % (Auto) 1.1 % (0.0-2.0) 06/05/20 08:24 Neut # (Auto) 3.4 K/uL (1.8-7.7) 06/05/20 08:24 Lymph # (Auto) 1.6 K/uL (1.0-5.5) 06/05/20 08:24 [place] # (Auto) 0.5 K/uL (0.0-1.0) 06/05/20 08:24 Eos # (Auto) 0.1 K/uL (0.0-0.4) 06/05/20 08:24 Baso # (Auto) 0.0 K/uL (0.0-0.2) 06/05/20 08:24 Sodium 137 mmol/L (136-145) 06/05/20 08:24 Potassium 3.0 mmol/L (3.5-5.1) L 06/05/20 08:24 Chloride 102 mmol/L (98-107) 06/05/20 08:24 Carbon Dioxide 24 mmol/L (23-29) 06/05/20 08:24 Anion Gap 14 (5-15) 06/05/20 08:24 BUN 6 mg/dL (8-21) L 06/05/20 08:24 Creatinine 1.11 mg/dL (0.70-1.30) 06/05/20 08:24 Glucose 112 mg/dL (70-99) H 06/05/20 08:24 Calcium 9.5 mg/dL (8.4-10.2) 06/05/20 08:24 Total Bilirubin 0.3 mg/dL (0.0-1.0) 06/05/20 08:24 AST 37 U/L (10-37) 06/05/20 08:24 ALT 40 U/L (12-78) 06/05/20 08:24 Alkaline Phosphatase 56 U/L (46-116) 06/05/20 08:24 Total Protein 6.9 g/dL (6.4-8.3) 06/05/20 08:24 Albumin 3.6 g/dL (3.4-5.0) 06/05/20 08:24 Triglycerides 119 mg/dL (30-150) 06/06/20 10:40 Cholesterol 213 mg/dL (<200) H 06/06/20 10:40 LDL Cholesterol 113 mg/dL (0-129) 06/06/20 10:40 HDL Cholesterol 80 mg/dL (>55) 06/06/20 10:40 Coronavirus (PCR) NOT DETECTED (NOT DETECTD) 06/12/20 06:21 - Physical Exam Vitals and I&O: Vital Signs Temp 97.7 F 06/13/20 14:00 Pulse 68 06/13/20 14:00 Resp 18 06/13/20 14:00 BP 109/65 06/13/20 14:00 Pulse Ox 95 06/13/20 14:00 Intake & Output 06/12/20 06/13/20 06/13/20 18:59 06:59 18:59 Intake Total 1000 120 Balance 1000 120 Intake: Oral 1000 120 Other: # Voids 4 3 # Bowel Movements 2 Active Medications: Current Medications Acetaminophen (Tylenol) 650 mg PO Q4H PRN PRN Reason: Pain (Mild 1-3) Stop: 08/03/20 02:30 Last Admin: 06/13/20 03:36 Dose: 650 mg Al Hydrox/Mg Hydrox/Simethicone (Maalox) 30 ml PO Q4HR PRN PRN Reason: GI DISTRESS Stop: 08/05/20 16:20 Last Admin: 06/13/20 03:40 Dose: 30 ml Brimonidine Tartrate (Alphagan 0.2% Ophth Soln) 1 drop EACH EYE TID SABINO Stop: 08/08/20 13:59 Last Admin: 06/13/20 14:13 Dose: 1 drop Dorzolamide HCl (Trusopt 2% Ophth Soln) 1 drop EACH EYE TID SABINO Stop: 08/08/20 13:59 Last Admin: 06/13/20 14:13 Dose: 1 drop Escitalopram Oxalate 10 mg/ (Escitalopram Oxalate 5 mg) 15 mg PO DAILY [facility] Stop: 08/12/20 09:59 Last Admin: 06/13/20 09:36 Dose: 15 mg Ibuprofen (Motrin) 600 mg PO TID PRN PRN Reason: abdominal pain Stop: 08/03/20 20:59 Last Admin: 06/11/20 04:56 Dose: 600 mg Latanoprost (Xalatan 0.005% Ophth Soln) 1 drop EACH EYE HS SABINO Stop: 08/08/20 20:59 Last Admin: 06/12/20 20:58 Dose: 1 drop Lorazepam (Ativan) 0.5 mg PO Q4HR PRN; Protocol PRN Reason: Anxiety Stop: 07/04/20 02:30 Last Admin: 06/11/20 12:07 Dose: 0.5 mg Magnesium Hydroxide (Milk Of Magnesia) 30 ml PO HS PRN PRN Reason: Constipation Risperidone (Risperdal) 1 mg PO BID SABINO; Protocol Stop: 08/03/20 09:59 Last Admin: 08/21/20 09:29 Dose: 1 mg Timolol Maleate (Timoptic 0.25% Ophth Soln) 1 drop EACH EYE QAM SABINO Stop: 08/09/20 08:59 Last Admin: 06/13/20 09:30 Dose: 1 drop Zolpidem Tartrate (Ambien) 5 mg PO HS PRN PRN Reason: Insomnia Stop: 08/03/20 02:30 Last Admin: 06/12/20 21:59 Dose: 5 mg General: weak HEENT: NC/AT Neck: Supple Lungs: CTAB Cardiovascular: RRR, Normal S1, Normal S2 Abdomen: soft Extremities: clear Neurological: no change Internal Medicine Assmt/Plan - Assessment Assessment: 1. HTN 2. Hypothyroidism 3. Hypokalemia - Plan Plan: continue supportive care d/w r.n. reviewed complete medical records Nutritional Asmnt/Malnutr-PDOC - Dietary Evaluation Malnutrition Findings (Please click <Entered> for more info): Nutritional Asmnt/Malnutrition Start: 06/09/20 14: 10 Text: Status: Complete Freq: Protocol: Document 06/09/20 14:10 CHEKO (Rec: 06/09/20 14:14 [id number]) Nutritional Asmnt/Malnutrition Patient General Information Nutritional Screening Low Risk Diagnosis Acute Psychosis Pertinent Medical Hx/Surgical Hx Depression, Fibromyalgia, Hypothyroidism Subjective Information Pt is a 59-year-old female admitted on 06/04 d/t hold with delusions and hallucinations. Pt is eating an estimated 95 % of meals since admit date ( x4 days) Per Meal/Nutrition Activity Record. Dietary is currently providing an estimated 2400 kcals and 109 gm Pro, per PO intake this is providing an estimated 2280 kcals and 103g Pro to meet 100 +% kcal and 100+% Pro needs. Visited pt in room, stated her stomach feels bloated, food has been fine. Pt stated she had a gallbladder removal, did not give a date of occurrence . Spoke with charge nurse Elise concerning diet recommendation. Recorded pt food preferences. Recommend Cardiac Diet to lower overall fat intake d/t obesity and BMI >30 (33.36). Anthropometrics HT: 57 WT: 213 LB (96.82 kg) ABW: 155 Lb (70.23 kg) BMI: 33.36 (obese) GI/ Skin Integrity GI: WNL, Soft, Non-tender, Large BM: 06/07 x1 I/O: 120/Not Noted Skin: WNL, Intact [place]: 19 Diet Order: Regular Estimated Energy Needs: (Obese , ABW) 1671-4255 kcals (20-25 kcals/ kg) 55-70g Pro (0.8-1.0 g/kg) 4115-8429 ml (20-25 ml/kg) Current Diet Order/ Nutrition Support Regular Patient / S.O Can Pertinent Medications Maalox (PRN), MOM (PRN) Pertinent Labs 06/05: Potassium 3.0, BUN/Cr 6/ 112, Glucose 112, Cholesterol 213 Nutritional Hx/Data Height 1.7 m Height (Calculated Centimeters) 170.2 Current Weight (lbs) 96.615 kg Weight (Calculated Kilograms) 96.6 Weight (Calculated Grams) 07871.2 [place] Body Weight 135 Lb (61.36 kg) % [place] Body Weight 158 Body Mass Index (BMI) 33.3 Weight Status Obese GI Symptoms Skin Integrity/Comment: Skin: WNL, Intact [place]: 19 Estimated Nutritional Goals BEE in Kcals: Adj wt of IBW Calories/Kcals/Kg 20-25 Kcals Calculated 7735-2329 Protein: Adj wt of IBW Protein g/k.8-1.0 Protein Calculated 55-70 Fluid: ml 3308-9619 ml (20-25 ml/kg) Nutritional Problem 2. Problem Problem Obese Etiology r/t chronic energy overconsumption Signs/Symptoms: aeb BMI <30 (33.36). 1. Problem Problem Altered nutrition related labs Etiology r/t pathophysiological causes Signs/Symptoms: aeb (06/05) Potassium 3.0, BUN/ Cr 6/112, Glucose 112, Cholesterol 213. Malnutrition Related to Morbid Obesity Malnutrition related to morbid obesity No Intervention/Recommendation Comments Recommend Cardiac diet. Expected Outcomes/Goals Expected Outcomes/Goals 1.PO intake to continue to meet >75% of estimated nutritional needs. 2.Monitor PO intake, wt, nutrition related labs to trend WNL, and skin integrity. 3.F/U as low risk in 7-10 days , 06/16-06/19.
--- NOTE | 2020-06-13 18:06 | Progress Notes ---
DATE: 06/13/2020 SUBJECTIVE: Chart was reviewed and the patient interviewed. Also discussed the patient's condition with the staff and reviewed records and labs. The patient is calm and cooperative. The patient also is interacting more with peers and with others. The patient also denies any intention to harm herself or others and she is compliant with taking her medications. I was planning to discharge the patient today, but correctional casework specialist said that no transportation available and the patient will be discharged on Tuesday. For some reason the correctional casework specialist is unable to discharge the patient today. ASSESSMENT: The patient is less depressed and less psychotic and less agitated. TREATMENT PLAN: At this time, we will continue current treatment and hopefully the patient can be discharged tomorrow. At the same time, we will continue current medications and followup closely. If the patient can be discharged tomorrow, the patient can be discharged. JOB# [id number]
--- NOTE | 2020-06-13 19:29 | Progress Notes ---
DATE: 06/12/2020 SUBJECTIVE: Chart reviewed and the patient interviewed. Also discussed the patient's condition with the staff and reviewed records and labs. The patient still has concerns about her health and she is preoccupied with her surgery that is going to happen in the GI system and confirmed by her caregiver. The patient also is still in a depressed mood and she is still worried. She also tends to isolate herself, but at the same time, she is socializing slightly more and trying to interact more. She is still feeling hopeless and helpless, but she is still worried. ASSESSMENT: The patient is still in a depressed mood. TREATMENT PLAN: We will continue to monitor her behavior and her condition closely. Also, we will increase Lexapro to 15 mg every day and continue Risperdal 1 mg twice a day. Also, continue to work on her ineffective coping. JOB# [id number]
[2020-06-14] MEDS: risperiDONE 1 mg/mL 30 mL Bottle PO SCH ×2 (08:54→16:35)
[2020-06-14] MEDS: Escitalopram Oxalate 10 MG, Escitalopram Oxalate 5 MG PO SCH (08:54)
[2020-06-14] MEDS: Timolol 0.25% Ophth Soln 5 mL Bottle EACH EYE SCH (08:54)
--- NOTE | 2020-06-14 11:49 | Progress Notes ---
DATE: 06/14/2020 COVERING PHYSICIAN: Lina lEder M.D. SUBJECTIVE: The patient was interviewed. Case was discussed with staff. Chart and records were reviewed. Per the staff, the patient continues to remain paranoid and also continues to remain very somatic with multiple complaints. The patient was visited at bedside. She remains very focused on her stomach pain. She reports that it is alleviated with the medications. She reports that she is starting to feel a little bit better because of the psychiatric medication. She reports no side effects. She reports that her stomach issues have been happening for a long time. She does not feel it is from the medicine. The patient otherwise remains somewhat anxious, worried and depressed; however, she reports that she is starting to feel a little bit better. She feels hopeless in regard to her pain, but feels that the medications are helping. MENTAL STATUS EXAMINATION: The patient is lying comfortably in the hospital bed. She reports that she is having stomach pain. However, she appears to be very comfortable, in no acute distress. Her mood is depressed and anxious. Affect is constricted. Thought process is concrete. Unable to assess for any suicidal or homicidal thoughts, hallucinations or paranoia due to her poor cooperation, but per the staff, the patient has had intermittent paranoia. She is alert and oriented x 3. Insight, judgment and impulse control appear to be quite poor at this time. ASSESSMENT: We will continue the patient's acute psychiatric hospitalization. We will continue her medications as prescribed. We will encourage the patient to verbalize her needs and to participate in group and milieu therapy. [facility]# [id number]
[2020-06-14 14:04] LABS: CALCIUM SERUM 9.2 mg/dL (8.4-10.2); CREATININE - SERUM 1.22 mg/dL (0.70-1.30); POTASSIUM SERUM 3.6 mmol/L (3.5-5.1); TOTAL PROTEIN,SERUM 7.6 g/dL (6.4-8.3)
[2020-06-14 14:05] LABS: BILIRUBIN,TOTAL 0.4 mg/dL (0.0-1.0)
--- NOTE | 2020-06-14 14:27 | Internal Medicine Prog Note ---
Internal Medicine Subjective - Subjective Service Date: 06/14/20 Patient is:: awake Patient Complaints of:: congestion Per staff patient has:: no adverse event, no episodes of fall Internal Medicine Objective - Results Result Diagrams: 06/05/20 08:24 06/14/20 08:40 Recent Labs: Laboratory Last Values WBC 5.6 K/uL (4.8-10.8) 06/05/20 08:24 RBC 3.83 MIL/uL (4.2-6.2) L 06/05/20 08:24 Hgb 12.2 g/dL (12.0-16.0) 06/05/20 08:24 Hct 37.3 % (36-48) 06/05/20 08:24 MCV 97 fL (79.0-98.0) 06/05/20 08:24 MCH 32 pg (27-31) H 06/05/20 08:24 MCHC 33 % (32-36) 06/05/20 08:24 RDW 13.5 % (9.0-15.0) 06/05/20 08:24 Plt Count 391 K/uL (130-430) 06/05/20 08:24 MPV 7.8 fl (7.4-10.4) 06/05/20 08:24 Neut % (Auto) 60.6 % (40-70) 06/05/20 08:24 Lymph % (Auto) 27.7 % (20.5-51.5) 06/05/20 08:24 [place] % (Auto) 8.2 % (1.7-9.3) 06/05/20 08:24 Eos % (Auto) 2.4 % (0-4) 06/05/20 08:24 Baso % (Auto) 1.1 % (0.0-2.0) 06/05/20 08:24 Neut # (Auto) 3.4 K/uL (1.8-7.7) 06/05/20 08:24 Lymph # (Auto) 1.6 K/uL (1.0-5.5) 06/05/20 08:24 [place] # (Auto) 0.5 K/uL (0.0-1.0) 06/05/20 08:24 Eos # (Auto) 0.1 K/uL (0.0-0.4) 06/05/20 08:24 Baso # (Auto) 0.0 K/uL (0.0-0.2) 06/05/20 08:24 Sodium 125 mmol/L (136-145) L 06/14/20 08:40 Potassium 3.6 mmol/L (3.5-5.1) 06/14/20 08:40 Chloride 93 mmol/L (98-107) L 06/14/20 08:40 Carbon Dioxide 23 mmol/L (23-29) 06/14/20 08:40 Anion Gap 13 (5-15) 06/14/20 08:40 BUN 15 mg/dL (8-21) 06/14/20 08:40 Creatinine 1.22 mg/dL (0.70-1.30) 06/14/20 08:40 Glucose 99 mg/dL (70-99) 06/14/20 08:40 Calcium 9.2 mg/dL (8.4-10.2) 06/14/20 08:40 Total Bilirubin 0.4 mg/dL (0.0-1.0) 06/14/20 08:40 AST 31 U/L (10-37) 06/14/20 08:40 ALT 40 U/L (12-78) 06/14/20 08:40 Alkaline Phosphatase 73 U/L (46-116) 06/14/20 08:40 Total Protein 7.6 g/dL (6.4-8.3) 06/14/20 08:40 Albumin 3.9 g/dL (3.4-5.0) 06/14/20 08:40 Triglycerides 119 mg/dL (30-150) 06/06/20 10:40 Cholesterol 213 mg/dL (<200) H 06/06/20 10:40 LDL Cholesterol 113 mg/dL (0-129) 06/06/20 10:40 HDL Cholesterol 80 mg/dL (>55) 06/06/20 10:40 Coronavirus (PCR) NOT DETECTED (NOT DETECTD) 06/12/20 06:21 - Physical Exam Vitals and I&O: Vital Signs Temp 98.4 F 06/14/20 06:17 Pulse 96 06/14/20 06:17 Resp 19 06/14/20 06:17 BP 140/83 08/22/20 06:17 Pulse Ox 98 06/14/20 06:17 Intake & Output 06/13/20 06/14/20 06/14/20 18:59 06:59 18:59 Intake Total 1200 480 Balance 1200 480 Intake: Oral 1200 480 Other: # Voids 4 1 # Bowel Movements 1 0 Active Medications: Current Medications Acetaminophen (Tylenol) 650 mg PO Q4H PRN PRN Reason: Pain (Mild 1-3) Stop: 08/03/20 02:30 Last Admin: 06/14/20 05:43 Dose: 650 mg Al Hydrox/Mg Hydrox/Simethicone (Maalox) 30 ml PO Q4HR PRN PRN Reason: GI DISTRESS Stop: 08/05/20 16:20 Last Admin: 06/13/20 03:40 Dose: 30 ml Brimonidine Tartrate (Alphagan 0.2% Ophth Soln) 1 drop EACH EYE TID SAB[place] Stop: 08/08/20 13:59 Last Admin: 06/14/20 13:58 Dose: 1 drop Dorzolamide HCl (Trusopt 2% Ophth Soln) 1 drop EACH EYE TID [place] Stop: 08/08/20 13:59 Last Admin: 06/14/20 13:58 Dose: 1 drop Escitalopram Oxalate 10 mg/ (Escitalopram Oxalate 5 mg) 15 mg PO DAILY [facility] Stop: 08/12/20 09:59 Last Admin: 06/14/20 08:54 Dose: 15 mg Ibuprofen (Motrin) 600 mg PO TID PRN PRN Reason: abdominal pain Stop: 08/03/20 20:59 Last Admin: 06/14/20 01:51 Dose: 600 mg Latanoprost (Xalatan 0.005% Ophth Soln) 1 drop EACH EYE HS SABINO Stop: 08/08/20 20:59 Last Admin: 06/13/20 20:58 Dose: 1 drop Lorazepam (Ativan) 0.5 mg PO Q4HR PRN; Protocol PRN Reason: Anxiety Stop: 07/04/20 02:30 Last Admin: 06/11/20 12:07 Dose: 0.5 mg Magnesium Hydroxide (Milk Of Magnesia) 30 ml PO HS PRN PRN Reason: Constipation Risperidone (Risperdal) 1 mg PO BID SABINO; Protocol Stop: 08/03/20 09:59 Last Admin: 06/14/20 08:54 Dose: 1 mg Timolol Maleate (Timoptic 0.25% Ophth Soln) 1 drop EACH EYE QAM SAB[place] Stop: 08/09/20 08:59 Last Admin: 06/14/20 08:54 Dose: 1 drop Zolpidem Tartrate (Ambien) 5 mg PO HS PRN PRN Reason: Insomnia Stop: 08/03/20 02:30 Last Admin: 06/13/20 22:57 Dose: 5 mg General: weak HEENT: NC/AT Neck: Supple Lungs: CTAB Cardiovascular: RRR, Normal S1, Normal S2 Abdomen: soft Extremities: clear Neurological: no change Internal Medicine Assmt/Plan - Assessment Assessment: 1. Hyponatremia 2. Hypothyroidism 3. Hypokalemia 4. HTN - Plan Plan: fluid restriction repeat BMP in few days continue supportive care d/w r.n. reviewed complete medical records Nutritional Asmnt/Malnutr-PDOC - Dietary Evaluation Malnutrition Findings (Please click <Entered> for more info): Nutritional Asmnt/Malnutrition Start: 06/09/20 14: 10 Text: Status: Complete Freq: Protocol: Document 06/09/20 14:10 CHEKO (Rec: 06/09/20 14:14 CHEKO [id number]) Nutritional Asmnt/Malnutrition Patient General Information Nutritional Screening Low Risk Diagnosis Acute Psychosis Pertinent Medical Hx/Surgical Hx Depression, Fibromyalgia, Hypothyroidism Subjective Information Pt is a 59-year-old female admitted on 06/04 d/t hold with delusions and hallucinations. Pt is eating an estimated 95 % of meals since admit date ( x4 days) Per Meal/Nutrition Activity Record. Dietary is currently providing an estimated 2400 kcals and 109 gm Pro, per PO intake this is providing an estimated 2280 kcals and 103g Pro to meet 100 +% kcal and 100+% Pro needs. Visited pt in room, stated her stomach feels bloated, food has been fine. Pt stated she had a gallbladder removal, did not give a date of occurrence . Spoke with charge nurse Elise concerning diet recommendation. Recorded pt food preferences. Recommend Cardiac Diet to lower overall fat intake d/t obesity and BMI >30 (33.36). Anthropometrics HT: 57 WT: 213 LB (96.82 kg) ABW: 155 Lb (70.23 kg) BMI: 33.36 (obese) GI/ Skin Integrity GI: WNL, Soft, Non-tender, Large BM: 06/07 x1 I/O: 120/Not Noted Skin: WNL, Intact [place]: 19 Diet Order: Regular Estimated Energy Needs: (Obese , ABW) 4810-0780 kcals (20-25 kcals/ kg) 55-70g Pro (0.8-1.0 g/kg) 0767-8812 ml (20-25 ml/kg) Current Diet Order/ Nutrition Support Regular Patient / S.O Can Pertinent Medications Maalox (PRN), MOM (PRN) Pertinent Labs 06/05: Potassium 3.0, BUN/Cr 6/ 112, Glucose 112, Cholesterol 213 Nutritional Hx/Data Height 1.7 m Height (Calculated Centimeters) 170.2 Current Weight (lbs) 96.615 kg Weight (Calculated Kilograms) 96.6 Weight (Calculated Grams) 01991.2 [place] Body Weight 135 Lb (61.36 kg) % [place] Body Weight 158 Body Mass Index (BMI) 33.3 Weight Status Obese GI Symptoms Skin Integrity/Comment: Skin: WNL, Intact [place]: 19 Estimated Nutritional Goals BEE in Kcals: Adj wt of IBW Calories/Kcals/Kg 20-25 Kcals Calculated 2336-3286 Protein: Adj wt of IBW Protein g/k.8-1.0 Protein Calculated 55-70 Fluid: ml 8951-0007 ml (20-25 ml/kg) Nutritional Problem 2. Problem Problem Obese Etiology r/t chronic energy overconsumption Signs/Symptoms: aeb BMI <30 (33.36). 1. Problem Problem Altered nutrition related labs Etiology r/t pathophysiological causes Signs/Symptoms: aeb (06/05) Potassium 3.0, BUN/ Cr 6/112, Glucose 112, Cholesterol 213. Malnutrition Related to Morbid Obesity Malnutrition related to morbid obesity No Intervention/Recommendation Comments Recommend Cardiac diet. Expected Outcomes/Goals Expected Outcomes/Goals 1.PO intake to continue to meet >75% of estimated nutritional needs. 2.Monitor PO intake, wt, nutrition related labs to trend WNL, and skin integrity. 3.F/U as low risk in 7-10 days , 06/16-06/19.
[2020-06-15] MEDS: Timolol 0.25% Ophth Soln 5 mL Bottle EACH EYE SCH (08:57)
[2020-06-15] MEDS: risperiDONE 1 mg/mL 30 mL Bottle PO SCH ×2 (08:58→17:20)
[2020-06-15] MEDS: Escitalopram Oxalate 10 MG, Escitalopram Oxalate 5 MG PO SCH (08:58)
--- NOTE | 2020-06-15 11:03 | Progress Notes ---
DATE: 06/15/[address] Lian Elder. SUBJECTIVE: The patient was interviewed. Case was discussed with staff. Chart and records were reviewed. The patient was able to sleep about 8 hours last night. No acute distress noted. The patient continues to remain focused on her stomach pain. However later on, she was seen walking on the unit, in no acute distress, smiling and laughing with the other patients. The patient has been medication adherent, but remains anxious, worried and depressed, also has no plan for self-care, hygiene appears to be improved. MENTAL STATUS EXAMINATION: The patient is walking comfortably on the unit. Reports having stomach pain, but appears to be in no acute distress and appears to be smiling, laughing and no grimacing noted. The patient is depressed, anxious with constricted affect. Her thought process is concrete. Unable to assess for any suicidal or homicidal thoughts due to her poor and limited cooperation and unable to assess for hallucinations or paranoia, but the patient does remain very preoccupied with stomach pain. The patient is alert and oriented to person and place. Insight, judgment and impulse control appear to be quite poor. ASSESSMENT AND PLAN: We will continue the patient's acute psychiatric hospitalization given the severity of her anxiety and depression, also no plan for self-care. We will continue medications as prescribed. We will encourage the patient to verbalize her needs. Encourage the patient to participate in group and milieu therapy and also attend to her hygiene. [facility]# [id number]
--- NOTE | 2020-06-15 14:21 | Internal Medicine Prog Note ---
Internal Medicine Subjective - Subjective Service Date: 06/15/20 Patient seen and examined:: without staff (no fevers, no cough, no sob) Patient is:: awake Patient Complaints of:: congestion Per staff patient has:: no adverse event, no episodes of fall Internal Medicine Objective - Results Result Diagrams: 06/05/20 08:24 06/14/20 08:40 Recent Labs: Laboratory Last Values WBC 5.6 K/uL (4.8-10.8) 06/05/20 08:24 RBC 3.83 MIL/uL (4.2-6.2) L 06/05/20 08:24 Hgb 12.2 g/dL (12.0-16.0) 06/05/20 08:24 Hct 37.3 % (36-48) 06/05/20 08:24 MCV 97 fL (79.0-98.0) 06/05/20 08:24 MCH 32 pg (27-31) H 06/05/20 08:24 MCHC 33 % (32-36) 06/05/20 08:24 RDW 13.5 % (9.0-15.0) 06/05/20 08:24 Plt Count 391 K/uL (130-430) 06/05/20 08:24 MPV 7.8 fl (7.4-10.4) 06/05/20 08:24 Neut % (Auto) 60.6 % (40-70) 06/05/20 08:24 Lymph % (Auto) 27.7 % (20.5-51.5) 06/05/20 08:24 [place] % (Auto) 8.2 % (1.7-9.3) 06/05/20 08:24 Eos % (Auto) 2.4 % (0-4) 06/05/20 08:24 Baso % (Auto) 1.1 % (0.0-2.0) 06/05/20 08:24 Neut # (Auto) 3.4 K/uL (1.8-7.7) 06/05/20 08:24 Lymph # (Auto) 1.6 K/uL (1.0-5.5) 06/05/20 08:24 [place] # (Auto) 0.5 K/uL (0.0-1.0) 06/05/20 08:24 Eos # (Auto) 0.1 K/uL (0.0-0.4) 06/05/20 08:24 Baso # (Auto) 0.0 K/uL (0.0-0.2) 06/05/20 08:24 Sodium 125 mmol/L (136-145) L 06/14/20 08:40 Potassium 3.6 mmol/L (3.5-5.1) 06/14/20 08:40 Chloride 93 mmol/L (98-107) L 06/14/20 08:40 Carbon Dioxide 23 mmol/L (23-29) 06/14/20 08:40 Anion Gap 13 (5-15) 06/14/20 08:40 BUN 15 mg/dL (8-21) 06/14/20 08:40 Creatinine 1.22 mg/dL (0.70-1.30) 06/14/20 08:40 Glucose 99 mg/dL (70-99) 06/14/20 08:40 Calcium 9.2 mg/dL (8.4-10.2) 06/14/20 08:40 Total Bilirubin 0.4 mg/dL (0.0-1.0) 06/14/20 08:40 AST 31 U/L (10-37) 06/14/20 08:40 ALT 40 U/L (12-78) 06/14/20 08:40 Alkaline Phosphatase 73 U/L (46-116) 06/14/20 08:40 Total Protein 7.6 g/dL (6.4-8.3) 06/14/20 08:40 Albumin 3.9 g/dL (3.4-5.0) 06/14/20 08:40 Triglycerides 119 mg/dL (30-150) 06/06/20 10:40 Cholesterol 213 mg/dL (<200) H 06/06/20 10:40 LDL Cholesterol 113 mg/dL (0-129) 06/06/20 10:40 HDL Cholesterol 80 mg/dL (>55) 06/06/20 10:40 Coronavirus (PCR) NOT DETECTED (NOT DETECTD) 06/12/20 06:21 - Physical Exam Vitals and I&O: Vital Signs Temp 97.9 F 06/15/20 06:03 Pulse 65 06/15/20 06:03 Resp 18 06/15/20 06:03 BP 113/77 06/15/20 06:03 Pulse Ox 98 06/15/20 06:03 Intake & Output 06/14/20 06/15/20 06/15/20 18:59 06:59 18:59 Intake Total 1200 240 Balance 1200 240 Intake: Oral 1200 240 Other: # Voids 4 2 # Bowel Movements 1 Stool Characteristics Soft Formed Brown Active Medications: Current Medications Acetaminophen (Tylenol) 650 mg PO Q4H PRN PRN Reason: Pain (Mild 1-3) Stop: 08/03/20 02:30 Last Admin: 06/14/20 14:59 Dose: 650 mg Al Hydrox/Mg Hydrox/Simethicone (Maalox) 30 ml PO Q4HR PRN PRN Reason: GI DISTRESS Stop: 08/05/20 16:20 Last Admin: 06/13/20 03:40 Dose: 30 ml Brimonidine Tartrate (Alphagan 0.2% Ophth Soln) 1 drop EACH EYE TID SABINO Stop: 08/08/20 13:59 Last Admin: 06/15/20 08:57 Dose: 1 drop Dorzolamide HCl (Trusopt 2% Ophth Soln) 1 drop EACH EYE TID SABINO Stop: 08/08/20 13:59 Last Admin: 06/15/20 08:57 Dose: 1 drop Escitalopram Oxalate 10 mg/ (Escitalopram Oxalate 5 mg) 15 mg PO DAILY [facility] Stop: 08/12/20 09:59 Last Admin: 06/15/20 08:58 Dose: 15 mg Ibuprofen (Motrin) 600 mg PO TID PRN PRN Reason: abdominal pain Stop: 08/03/20 20:59 Last Admin: 06/14/20 01:51 Dose: 600 mg Latanoprost (Xalatan 0.005% Ophth Soln) 1 drop EACH EYE HS SABINO Stop: 08/08/20 20:59 Last Admin: 06/14/20 20:18 Dose: 1 drop Lorazepam (Ativan) 0.5 mg PO Q4HR PRN; Protocol PRN Reason: Anxiety Stop: 07/04/20 02:30 Last Admin: 06/11/20 12:07 Dose: 0.5 mg Magnesium Hydroxide (Milk Of Magnesia) 30 ml PO HS PRN PRN Reason: Constipation Risperidone (Risperdal) 1 mg PO BID SABINO; Protocol Stop: 08/03/20 09:59 Last Admin: 06/15/20 08:58 Dose: 1 mg Timolol Maleate (Timoptic 0.25% Ophth Soln) 1 drop EACH EYE QAM SABINO Stop: 08/09/20 08:59 Last Admin: 06/15/20 08:57 Dose: 1 drop Zolpidem Tartrate (Ambien) 5 mg PO HS PRN PRN Reason: Insomnia Stop: 08/03/20 02:30 Last Admin: 06/13/20 22:57 Dose: 5 mg General: weak HEENT: NC/AT Neck: Supple Lungs: CTAB Cardiovascular: RRR, Normal S1, Normal S2 Abdomen: soft Extremities: clear Neurological: no change Internal Medicine Assmt/Plan - Assessment Assessment: 1. Hyponatremia 2. Hypothyroidism 3. Hypokalemia 4. HTN - Plan Plan: fluid restriction continue supportive care d/w r.n. reviewed complete medical records Nutritional Asmnt/Malnutr-PDOC - Dietary Evaluation Malnutrition Findings (Please click <Entered> for more info): Nutritional Asmnt/Malnutrition Start: 06/09/20 14: 10 Text: Status: Complete Freq: Protocol: Document 06/09/20 14:10 CHEKO (Rec: 06/09/20 14:14 [id number]) Nutritional Asmnt/Malnutrition Patient General Information Nutritional Screening Low Risk Diagnosis Acute Psychosis Pertinent Medical Hx/Surgical Hx Depression, Fibromyalgia, Hypothyroidism Subjective Information Pt is a 59-year-old female admitted on 06/04 d/t hold with delusions and hallucinations. Pt is eating an estimated 95 % of meals since admit date ( x4 days) Per Meal/Nutrition Activity Record. Dietary is currently providing an estimated 2400 kcals and 109 gm Pro, per PO intake this is providing an estimated 2280 kcals and 103g Pro to meet 100 +% kcal and 100+% Pro needs. Visited pt in room, stated her stomach feels bloated, food has been fine. Pt stated she had a gallbladder removal, did not give a date of occurrence . Spoke with charge nurse Elise concerning diet recommendation. Recorded pt food preferences. Recommend Cardiac Diet to lower overall fat intake d/t obesity and BMI >30 (33.36). Anthropometrics HT: 57 WT: 213 LB (96.82 kg) ABW: 155 Lb (70.23 kg) BMI: 33.36 (obese) GI/ Skin Integrity GI: WNL, Soft, Non-tender, Large BM: 06/07 x1 I/O: 120/Not Noted Skin: WNL, Intact [place]: 19 Diet Order: Regular Estimated Energy Needs: (Obese , ABW) 0775-0143 kcals (20-25 kcals/ kg) 55-70g Pro (0.8-1.0 g/kg) 8463-0954 ml (20-25 ml/kg) Current Diet Order/ Nutrition Support Regular Patient / S.O Can Pertinent Medications Maalox (PRN), MOM (PRN) Pertinent Labs 06/05: Potassium 3.0, BUN/Cr 6/ 112, Glucose 112, Cholesterol 213 Nutritional Hx/Data Height 1.7 m Height (Calculated Centimeters) 170.2 Current Weight (lbs) 96.615 kg Weight (Calculated Kilograms) 96.6 Weight (Calculated Grams) 11498.2 [place] Body Weight 135 Lb (61.36 kg) % [place] Body Weight 158 Body Mass Index (BMI) 33.3 Weight Status Obese GI Symptoms Skin Integrity/Comment: Skin: WNL, Intact [place]: 19 Estimated Nutritional Goals BEE in Kcals: Adj wt of IBW Calories/Kcals/Kg 20-25 Kcals Calculated 4112-7609 Protein: Adj wt of IBW Protein g/k.8-1.0 Protein Calculated 55-70 Fluid: ml 9865-3600 ml (20-25 ml/kg) Nutritional Problem 2. Problem Problem Obese Etiology r/t chronic energy overconsumption Signs/Symptoms: aeb BMI <30 (33.36). 1. Problem Problem Altered nutrition related labs Etiology r/t pathophysiological causes Signs/Symptoms: aeb (06/05) Potassium 3.0, BUN/ Cr 6/112, Glucose 112, Cholesterol 213. Malnutrition Related to Morbid Obesity Malnutrition related to morbid obesity No Intervention/Recommendation Comments Recommend Cardiac diet. Expected Outcomes/Goals Expected Outcomes/Goals 1.PO intake to continue to meet >75% of estimated nutritional needs. 2.Monitor PO intake, wt, nutrition related labs to trend WNL, and skin integrity. 3.F/U as low risk in 7-10 days , 06/16-06/19.
--- NOTE | 2020-06-15 21:08 | Discharge Summary ---
DATE OF DISCHARGE: 06/15/2020 PATIENT'S AGE: 59 SEX: Female. PHYSICIAN: Dr. Elder. FINAL DIAGNOSIS AND PRIMARY DIAGNOSIS: Major depression, severe, single episode, with psychotic features. SECONDARY DIAGNOSIS: Opiate dependence. REASON FOR HOSPITALIZATION: The patient was admitted to the hospital because of increased depression and suicidal ideations and she left a note to her daughter indicating that she wants to kill herself and her daughter called the police. HOSPITAL COURSE: The patient continued to be in a depressed mood. The patient also was angry and irritable and continued to ask for pain medications. The patient also was started on Lexapro and that the dose adjusted to 50 mg every day. Also, was given Risperdal 1 mg twice a day. Gradually, the patient's affect was brighter. The patient was less irritable and less agitated. Also, it was easier to follow directions. The patient was also having some medical issues and her caregiver indicated that the patient will have surgery in GI system, but was not clear about what kind of surgery. The patient was not suicidal or homicidal and she was discharged from the hospital. PHYSICAL EXAMINATION: The patient showed no major medical problems while in the hospital. AFTER DISCHARGE PLANS: The patient discharged from the hospital and returned to her home with plans for outpatient treatment and followup to continue as an outpatient. EXPECTED OUTCOME AFTER DISCHARGE: Fair if the patient continues her outpatient treatment and follow up with discharge plans. DISCHARGE ACTIVITY: As tolerated. DISCHARGE DIET: Regular. EXPECTED OUTCOME AFTER DISCHARGE: Fair if the patient continues her outpatient treatment. JOB# [id number]
[2020-06-16] MEDS: Escitalopram Oxalate 10 MG, Escitalopram Oxalate 5 MG PO SCH (08:34)
[2020-06-16] MEDS: risperiDONE 1 mg/mL 30 mL Bottle PO SCH (08:35)
[2020-06-16] MEDS: Timolol 0.25% Ophth Soln 5 mL Bottle EACH EYE SCH (08:35)
== END 2020-06-16 10:10 | disposition home or self-care (01) | DRG 885 ==
LOC: GERO 06-04 00:20
PROVIDERS: ADMIT Psychiatry & Neurology Psychiatry; ATTEND Psychiatry & Neurology Psychiatry
DX: F32.3 Major depressive disorder, single episode, severe with psychotic features (principal); F11.20 Opioid dependence, uncomplicated; M79.7 Fibromyalgia; E03.9 Hypothyroidism, unspecified; Z88.0 Allergy status to penicillin; I10 Essential (primary) hypertension; E87.6 Hypokalemia
CPT/HCPCS: 36415-UA; 80053-TC; 80061-TC; 83036-90; 85025-TC; 90899; G0410; U0003-CS; Z7610